=== PATIENT | female | born 1990 | race African-American/Black ===

== ENCOUNTER 2018-04-28 01:27 | Emergency (ER) | payer OTHER, SELFPAY | END 2018-04-28 03:35 | disposition home or self-care (01) | LOC: ERS 01:27 | DX: R20.2 Paresthesia of skin (principal) | CPT/HCPCS: 36416; 99283 ==

== ENCOUNTER 2018-05-18 01:15 | Emergency (ER) | payer SELFPAY | END 2018-05-18 02:00 | disposition home or self-care (01) | LOC: ERS 01:15 | DX: M54.5 Low back pain (principal); X50.1XXA Overexertion from prolonged static or awkward postures, initial encounter | CPT/HCPCS: 99283 ==

== ENCOUNTER 2018-05-20 01:19 | Emergency (ER) | payer SELFPAY | END 2018-05-20 02:07 | disposition home or self-care (01) | LOC: ERS 01:19 | DX: M54.5 Low back pain (principal); Z79.899 Other long term (current) drug therapy | CPT/HCPCS: 99283 ==

== ENCOUNTER 2018-10-23 11:05 | Emergency (ER) | payer SELFPAY | END 2018-10-23 11:59 | disposition home or self-care (01) | LOC: ERS 11:05 | DX: R20.2 Paresthesia of skin (principal); D50.0 Iron deficiency anemia secondary to blood loss (chronic); Z79.899 Other long term (current) drug therapy | CPT/HCPCS: 99283 ==

== ENCOUNTER 2018-10-28 09:15 | Emergency (ER) | payer SELFPAY ==
[2018-10-28] MEDS ORDERED: Fluorescein Opthalmic Strip ONE (10:20)
[2018-10-28] MEDS ORDERED: Proparacaine 0.5% Opth 15 ML BOT ONE (10:20)
== END 2018-10-28 10:50 | disposition home or self-care (01) ==
LOC: ERS 09:15
DX: S05.01XA Injury of conjunctiva and corneal abrasion without foreign body, right eye, initial encounter (principal); D64.9 Anemia, unspecified; X58.XXXA Exposure to other specified factors, initial encounter
CPT/HCPCS: 99283

== ENCOUNTER 2019-01-03 09:08 | Emergency (ER) | payer SELFPAY ==
--- NOTE | 2019-01-03 09:57 | RAD ---
EXAM: Single view of the chest HISTORY: Cough and fever COMPARISON: 05/18/2015 FINDINGS: Single view of the chest shows a normal sized cardiomediastinal silhouette. There is no selina dence of consolidation, mass, or pleural effusion. The bones are unremarkable. IMPRESSION: No evidence of acute cardiopulmonary disease
[2019-01-03 10:00] LABS: #Basophils 0.1 thou/uL (0.0-0.2); #Eosinphils 0.3 thou/uL (0.0-0.7); #Lymphocytes 1.2 thou/uL (1.20-3.40); #Monocytes 0.6 thou/uL (0.11-0.59); #Neutrophils 6.6 thou/uL (1.40-6.50); %Basophils 0.9 % (0.0-1.0); %Eosinophils 3.3 % (0.0-10.0); %Lymphocytes 13.5 % (21.0-51.0); %Monocytes 7.3 % (0.0-10.0); %Neutrophils 74.9 % (42.0-75.0); Hemoglobin 12.3 g/dL (12.0-16.0); Mean Corpuscular HGB CONC 33.4 g/dL (32.0-36.0); Mean Corpuscular Hemoglobin 26.5 pg (27.0-31.0); Mean Corpuscular Volume 79.2 fL (78.0-98.0); Mean Platelet Volume 7.9 fL (7.4-10.4); Platelet Count 321 thou/uL (130-400); RBC Distribution Width 15.4 % (11.5-14.5); Red Blood Cell (RBC) Count 4.67 mill/uL (4.20-5.40); White Blood Cell (WBC) Count 8.8 thou/uL (4.8-10.8)
[2019-01-03 10:22] LABS: ALT (SGPT) 8 U/L (8-55); AST (SGOT) 16 U/L (5-34); Albumin 4.7 g/dL (3.5-5.0); Alkaline Phosphatase 43 U/L (40-150); Anion Gap 13 mmol/L (10-20); BUN (Urea Nitrogen) 9 mg/dL (7.0-18.7); Bilirubin, Total 1.1 mg/dL (0.2-1.2); Calc. Creatinine Clearance 0 mL/min (70-130); Calcium 9.6 mg/dL (7.8-10.44); Carbon Dioxide 26 mmol/L (22-29); Chloride 105 mmol/L (98-107); Estimated GFR-MDRD Greater than 90; Glucose 81 mg/dL (70-105); Lipase 10 U/L (8-78); Potassium 3.8 mmol/L (3.5-5.1); Protein, Total 7.7 g/dL (6.0-8.3); Sodium 140 mmol/L (136-145)
[2019-01-03 10:23] LABS: Bilirubin Negative (Negative); Blood, Urine Negative (Negative); Clarity CLEAR (Clear); Glucose, Urine (Dipstick) Negative (Negative); Leukocyte Negative (Negative); Nitrite Negative (Negative); Protein, Urine (Dipstick) Negative (Neg-Trace); Specific Gravity, Urine 1.015 (1.002-1.036); Urobilinogen 0.2 mg/dL (0.2-1.0)
[2019-01-03 10:24] LABS: Pregnancy Test - Urine (BHCG) Negative (Negative); Pregu Control Background? CLEAR/WHITE (CLR/WHITE); Pregu Control Bar Appear? YES (CONTROL BAR); Specific Gravity 1.015 (1.002-1.036)
[2019-01-03 10:40] LABS: HIV (1/2) Antibody/Antigen Non-Reactive (NonReactive); HIV 1/2 INDEX 0.07 S/CO (<1.00)
== END 2019-01-03 11:03 | disposition home or self-care (01) ==
LOC: EEVIPCON 09:08 → ERS 09:08
DX: J20.9 Acute bronchitis, unspecified (principal); R50.9 Fever, unspecified
CPT/HCPCS: 71045; 80053; 81003; 81025; 83690; 85025; 87389; 87804; 96360